=== PATIENT | female | born 1960 | race Caucasian/White ===

== ENCOUNTER → 2019-08-01 | Outpatient (CLI) | payer OTHER ==
[~2019-08-01] MED LIST: OMNIPAQUE 350 MG/ML, 100ML BOTTLE ONE
== END | disposition home or self-care (01) ==
LOC: CFH 13:59
DX: K76.89 Other specified diseases of liver (principal); K59.00 Constipation, unspecified; K44.9 Diaphragmatic hernia without obstruction or gangrene; M47.816 Spondylosis without myelopathy or radiculopathy, lumbar region
CPT/HCPCS: 74177; Q9967